=== PATIENT | female | born 1975 | race Caucasian/White ===

== ENCOUNTER 2020-05-02 10:39 | Emergency (ER) | payer OTHER ==
[~2020-05-02] VITALS: Ht 160 cm; Wt 66.7 kg
[2020-05-02 10:45] VITALS: BP_SYST 127
[2020-05-02 11:44] LABS: BASOPHILS # (AUTO) 0.1 K/uL (0.0-0.2); EOSINOPHILS # (AUTO) 0.3 K/uL (0.0-0.4); EOSINOPHILS % (AUTO) 4.6 % (0.0-4.0); HEMATOCRIT 37.1 % (36-48); HEMOGLOBIN 11.9 g/dL (12.0-16.0); LYMPHOCYTES # (AUTO) 2.1 K/uL (1.0-5.5); LYMPHOCYTES % (AUTO) 28.9 % (20.5-51.5); MEAN CORPUSCULAR HEMOGLOBIN 26 pg (27-31); MEAN CORPUSCULAR HGB CONC 32 % (32-36); MEAN CORPUSCULAR VOLUME 79 fL (79.0-98.0); MONOCYTES # (AUTO) 0.6 K/uL (0.0-1.0); MONOCYTES % (AUTO) 8.2 % (1.7-9.3); NEUTROPHILS # (AUTO) 4.3 K/uL (1.8-7.7); NEUTROPHILS % (AUTO) 57.3 % (40.0-70.0); PLATELET COUNT (AUTO) 334 K/uL (130-430); RED BLOOD CELL COUNT(AUTO) 4.67 MIL/uL (4.2-6.2); RED CELL DISTRIBUTION WIDTH 13.5 % (9.0-15.0); WHITE BLOOD COUNT (AUTO) 7.4 K/uL (4.8-10.8)
[2020-05-02 11:55] LABS: CALCIUM 8.8 mg/dL (8.4-11.0); CREATININE 0.59 mg/dL (0.55-1.30); POTASSIUM 3.7 mmol/L (3.5-5.1)
[2020-05-02 12:01] LABS: ALBUMIN 3.3 g/dL (3.4-4.8); TOTAL BILIRUBIN 0.6 mg/dL (0.0-1.0)
[2020-05-02] MEDS: MORPHINE 2 MG/ML INJ. SYRINGE IVP ONE (12:13)
[2020-05-02] MEDS: NACL 0.9% 1,000 ML IV ONE (12:14)
[2020-05-02 13:31] VITALS: BP_SYST 124
== END 2020-05-02 13:31 | disposition home or self-care (01) ==
LOC: SED 10:39
DX: N83.201 Unspecified ovarian cyst, right side (principal); R03.0 Elevated blood-pressure reading, without diagnosis of hypertension
CPT/HCPCS: 36415; 76830; 76857; 80053; 81002; 81025; 85025; 96361; 96374; 99284; J2270; J7030

== ENCOUNTER 2020-06-20 08:07 | Outpatient (CLI) | payer OTHER | END 2020-06-20 20:40 | disposition home or self-care (01) | LOC: SMA 08:07 | PROVIDERS: ATTEND Obstetrics & Gynecology | DX: Z12.31 Encounter for screening mammogram for malignant neoplasm of breast (principal); D25.9 Leiomyoma of uterus, unspecified; N88.8 Other specified noninflammatory disorders of cervix uteri | CPT/HCPCS: 76830-TC; 76857; 77067 ==

== ENCOUNTER 2020-07-03 10:07 | Outpatient (CLI) | payer OTHER ==
[2020-07-04 10:07] LABS: HEPATITIS B SURFACE AG Negative (Negative)
== END 2020-07-03 20:31 | disposition home or self-care (01) ==
LOC: SMA 10:07
PROVIDERS: ATTEND Obstetrics & Gynecology
DX: Z11.3 Encounter for screening for infections with a predominantly sexual mode of transmission (principal); N60.02 Solitary cyst of left breast; N64.89 Other specified disorders of breast; R92.8 Other abnormal and inconclusive findings on diagnostic imaging of breast
CPT/HCPCS: 36415; 76642; 77065; 86592; 87340

== ENCOUNTER 2022-11-22 09:51 | Emergency (ER) | payer OTHER ==
[~2022-11-22] VITALS: Ht 162.6 cm; Wt 67.1 kg
[2022-11-22 09:51] VITALS: BP_SYST 123
[2022-11-22] MEDS ORDERED: LIDOCAINE 1% 10 MG/ML, 20 ML MDV INJ ONE (10:00)
[2022-11-22] MEDS ORDERED: DIPHTH,PERTUSS(ACELL),TET VAC 0.5 ML VIAL (Tdap) I.M. ONE (10:00)
[2022-11-22] MEDS ORDERED: BACITRACIN 1 GM OINT TP ONE (10:00)
[2022-11-22] MEDS ORDERED: CEPH250C PO (12:27)
[2022-11-22] MEDS ORDERED: TRAM50TA2 PO (12:27)
[2022-11-22] MEDS ORDERED: IBUP-1969 PO (12:27)
== END 2022-11-22 12:25 | disposition home or self-care (01) ==
LOC: SED 09:51
DX: S62.631B Displaced fracture of distal phalanx of left index finger, initial encounter for open fracture (principal); Z89.022 Acquired absence of left finger(s); Z79.899 Other long term (current) drug therapy; W29.0XXA Contact with powered kitchen appliance, initial encounter; Y93.89 Activity, other specified; Y92.89 Other specified places as the place of occurrence of the external cause; Y99.8 Other external cause status
CPT/HCPCS: 99283; 73140; 12001; J2001